=== PATIENT | male | born 1945 | race Caucasian/White ===

== ENCOUNTER 2016-11-14 14:54 | Observation (INO) | payer MEDICARE, OTHER ==
[~2016-11-14] VITALS: Ht 177.8 cm; Wt 87.2 kg
--- NOTE | ~2016-11-14 | HEMODYNAMI ---
PATIENT:MARLENA MEJÍA MEDICAL RECORD: [id number] : 47 [id number] ADMISSION DATE: 11/14/16 Generatedon:11/15/201613:19 Patient name: MARLENA MEJÍA Patient #: [id number] SSN: [id number] : 1945 Date of study: 11/15/2016 Page: Of Hemodynamic Procedure Report Patient Data Patient Demographics Procedure consent was obtained First Name: MARLENA Gender: Male Last Name: ALFONZO : 1945 Middle Initial: MARLENA Age: 71 year(s) Patient #: [id number] Race: SSN: [id number] Additional ID: [id number] Contact details Address: [address] [address] State: [place] City: [place] Zip code: [address] Past Medical History History of disease Date Diagnosis Comments CAD Allergies Allergen Reaction Date Comments Reported Sulfa drugs 02/19/2015 Other allergy 11/15/2016 sulfa Admission Admission Data Admission Date: 11/14/2016 Admission Time: 14:54 Arrival Date: 11/14/2016 Arrival Time: 14:54 Admit Source: Other Insurance Payor: Medicare Room #: D.2119 Weight (lbs.): 191.8 Weight (kg.): 87 Lab Results Lab Result Date: 11/15/2016 Lab Result Time: 0:00 Biochemistry Name Units Result Min Max BUN mg/dl 25 --(----)-* 7 18 Creatinine mg/dl 1.8 --(----)-* 0.6 1.3 CBC Name Units Result Min Max Hemoglobin g/dl 15.1 --(-*--)-- 13.5 17.5 Procedure Procedure Types Cath Procedure Diagnostic Procedure Cardioversion ANDRY Procedure Description Procedure Date Procedure Date: 11/15/2016 Procedure Start Time: 12:58 Procedure End Time: 13:16 Procedure Staff Name Function Jayme Swan MD Performing Physician Kylie Rand RT Scrneftaly Agudelo RN Nurse Tres Ware RT Manager Of It David Rosales RT Monitor Procedure Data Cath Procedure Fluoroscopy Diagnostic fluoroscopy Total fluoroscopy Time: 0 time: 0 min min Diagnostic fluoroscopy Total fluoroscopy dose: 0 dose: 0 mGy mGy Contrast Material Contrast Material Type Amount (ml) Isovue 370 0 Estimated blood loss: 0 ml Procedure Complications No complications Procedure Medications Medication Administration Route Dosage Oxygen NC 2 l/min Hurricaine [place] P.O. Sprays Refer to Anesthesia Notes for Sedation Medications Hemodynamics Rest HGB: 15.1 (g/dl) Heart Rate: 141 (bpm) Snapshots Pre Cath Intra NCS Post Cath Vital Signs Time Heart Resp SPO2 NIBP (mmHg) Rhythm Pain Sedation Rate (ipm) (%) Status Level (bpm) 12:51:00 139 16 99 144/106(123) A-Flutter 0 (11) 10(A) , No pain 12:55:59 139 16 100 Measuring A-Flutter 0 (11) 10(A) , No pain 12:56:14 138 16 100 126/112(124) A-Flutter 0 (11) 10(A) , No pain 13:00:17 127 15 98 124/94(102) A-Flutter 0 (11) 6(A) , No pain 13:04:23 127 16 99 135/89(112) A-Flutter 0 (11) 6(A) , No pain 13:06:58 80 17 99 117/78(94) NSR 0 (11) 6(A) , No pain 13:10:40 78 16 98 92/61(74) NSR 0 (11) 7(A) , No pain 13:15:14 77 22 98 106/69(77) NSR 0 (11) 9(A) , No pain Medications Time Medication Route Dose Verified Delivered Reason Notes Effective ness by by 12:50:20 Oxygen NC 2 Jayme Kumar Per l/min Sosa Agudelo RN physician 12:50:28 Hurricaine P.O. Sprays Jayme Delacruz Per [place] Sosa Swan MD physician 12:50:38 Refer to Jayme Delacruz Per Anesthesia Sosa Swan MD physician Notes for Sedation Medications Procedure Log Time Note 12:20:25 Tres Ware RT(R) sent for patient. Start room use. 12:43:15 ACC Patient presents with Non-STEMI CCS Anginal Class 2--Slight limitation of ordinary activity. 12:43:20 Diagnostic Cath status Elective 12:43:34 Time tracking: Regular hours 12::44 Plan of Care:Hemodynamics will remain stable., Cardiac rhythm will remain stable., Comfort level will be maintained., Respiratory function will remain adequate., Patient/ family verbilizes understanding of procedure., Procedure tolerated without complication., Recovers from procedure without complications.. 12:44:00 Patient arrived from PCU to CCL 1. Patient remains on bed/stretcher for procedure. 12:44:06 Correct patient and procedure confirmed by team. 12:44:07 Signed procedure consent form obtained from patient. 12:44:08 ECG and BP/O2 sat monitors applied to patient. 12:44:09 Vital chart was started 12:50:20 Oxygen 2 l/min NC was given by Stacy Agudelo RN; Per physician; 12:50:28 Hurricaine [place] Sprays P.O. was given by Jayme Swan MD; Per physician; 12:50:38 Refer to Anesthesia Notes for Sedation Medications was given by Jayme Swan MD; Per physician; 12:50:52 Baseline sample Acquired. 12:51:50 Lab Result : Hemoglobin 15.1 g/dl 12:51:50 Lab Result : Creatinine 1.8 mg/dl 12:51:50 Lab Result : BUN 25 mg/dl 12:52:30 Rhythm: atrial flutter 12:52:38 Full Disclosure recording started 12:52:49 H&P Date Dictated: 11/13/2016 Within 30 days and on chart., H&P Addendum completed by physician on day of procedure. (MUST COMPLETE FOR ALL OUTPATIENTS). 12:52:51 Pre-procedure instructions explained to patient. 12:52:51 Pre-op teaching completed and patient verbalized understanding. 12:52:52 Family in waiting room. 12:52:53 Patient NPO since Midnight. 12:53:35 Patient allergic to Other allergysulfa 12:55:22 Is the patient allergic to Iodine/contrast media? No. 12:55:23 Was the patient premedicated? No 12:55:25 Is patient on blood thinner?Yes 12:55:28 ACC The patient was administered the following blood thiners within the last 24 hours: Eliquis 12:55:31 Patient diabetic? No. 12:55:33 If diabetic: On Metformin? No 12:55:37 Previous problem with sedation/anesthesia? No ? 12:55:39 Snore? Yes 12:55:39 Sleep apnea? Yes 12:55:40 Deviated septum? No 12:55:41 Opens mouth fully? Yes 12:55:42 Sticks out tongue? Yes 12:55:43 Airway obstruction? No ? 12:55:46 Dentures? No ? 12:55:50 Pre procedure: right dorsailis pedis pulse 1+ Palpable, but thready & weak; easily obliterated 12:55:53 Patient pain scale 0/10 ?. 12:56:04 IV patent on arrival in right forearm with 0.9% NaCl at O. 12:56:07 Lab results completed and on chart. 12:56:15 Alarms reviewed by R. N. 12:56:16 Sharps counted by scrub and verified by R.N. 12:56:17 Physician arrived 12:56:17 --------ALL STOP TIME OUT------ 12:56:18 Final Timeout: patient, procedure, and site verified with staff and physician. All members of the team are in agreement. 12:56:22 Mid Chest site verified by team. 12:56:24 Physical assessment completed. ASA score P 2 - A patient with mild systemic disease as per Jayme Swan MD. 12:56:28 Sedation plan: TIVA Propofol 12:56:40 morenita chua present and monitoring patient for TIVA. 12:56:49 Chandra Giles Manager Title present for ANDRY. 12:58:29 Procedure started. 12:58:30 ANDRY started. 12:59:03 Quick Combo opened to sterile field. 13:04:15 ANDRY completed. 13:04:17 Quick combo pads placed on patients chest and back. 13:04:48 Defibrillator synced and charged to 300 Joules. 13:05:08 Shock delivered. 13:05:25 Patient cardioverted to sinus rhythm . 13:07:05 Procedure ended.(Physican Out) 13:07:12 Fluoroscopy time 00.00 minutes. 13:07:14 Fluoroscopy dose: 0 mGy 13:07:14 Flurop Dose total: 0 13:07:17 Contrast amount:Isovue 370 0ml. 13:07:19 Sharps counted by scrub and verified by R.N. 13:07:20 Insertion/operative site no bleeding no hematoma. 13:07:23 Post procedure rhythm: sinus rhythm 13:07:26 Estimated blood loss: 0 ml 13:07:27 Post procedure instruction explained to patient.Patient verbalizes understanding. 13:07:27 Patient needs reinforcement of post procedure teaching. 13:08:10 Procedure and supply charges have been captured, reviewed, submitted and are correct. 13:08:14 Procedure Complication : No complications 13:16:03 Vital chart was stopped 13:16:07 See physician's report for complete and final results. 13:16:10 Report given to Med II. 13:16:13 Patient transfered to Med II with Stretcher. 13:16:15 Procedure ended. 13:16:15 Full Disclosure recording stopped 13:16:20 End room use (Document Last) 13:17:08 Admit Source: Other 13:17:12 Arrival Date: 11/14/2016 2:54:00 PM 13:17:34 Insurance Payor : Medicare 13:17:51 Patient Weight : 87 kg Device Usage Item Manufacture Quantity Catalog Hospital Part Current Minimal Lot# / Name Number Charge Number Stock Stock [place] al# Code Datamars 1 [id number] Combo Signature Audit Morgan Stage Time Signature Unsigned Intra-Procedure 11/15/2016 Kylie Giorgi 1:19:23 PM RT(R) Signatures Monitor : David Rosales RT Signature : Date : Time : [facility] [address] [place] [address]
[~2016-11-14 14:54] MED LIST: AMBIEN5 MG PO; AMOXICILLIN875 MG PO; CATAPRES0.1 MG PO; CINNAMON OR; CRESTOR20 MG PO; DURAGESIC1 PATCH .3 TRANSDERM; DURAGESIC1 PATCH .7 TRANSDERM; ECOTRIN325 MG PO; FISH OIL 1,0001 CA1 PO; FLAXSEED OIL1000 MG PO; FLOMAX0.4 MG PO; GLUCOPHAGE500 MG PO; HYDROCHLOROTHIA25 MG OR; HYDROCODON-ACE1 EAC7 PO; ISOSORBIDE MONO30 M1 PO; PLAVIX75 MG PO; PRAVACHOL20 MG PO; RANEXA1000 MG PO; RYTHMOL150 MG PO; TOPROL XL25 MG; TOPROL XL25 MG PO; TRICOR145 MG PO; XANAX0.5 MG PO; XANAX1 MG PO
--- NOTE | 2016-11-14 15:17 | NUR ---
ALERT AND ORIENTED X4. ARRIVE TO ROOM VIA WHEELCHAIR FOR . DENIES SOB OR PAIN. COMPLAINS OF HEART RATE RACING. CAUSING TO FEEL RESTLESS. AMBULATES IN ROOM. GAIT STEADY. CONTINUE PLAN OF CARE AND ADMISSION PROCESS. REFUSES SCDs. TOO RESTLESS TO SIT STILL. BED LOCKED AND LOW. CALL LIGHT IN REACH. TWO SIDERAILS UP.
[2016-11-14] MEDS ORDERED: ELIQUIS5 MG PO (15:25)
[2016-11-14] MEDS ORDERED: PACERONE200 MG PO (15:26)
[2016-11-14] MEDS ORDERED: TOPROL XL50 MG PO (15:27)
[2016-11-14 15:44] VITALS: BP 126/78
[2016-11-14 15:59] LABS: BASOPHILS 0.1 % (0.0-2.0); EOSINOPHILS 4.7 % (0-7); HEMATOCRIT 44.9 % (42.0-54.0); HEMOGLOBIN 15.1 g/dL (13.5-17.5); IMMATURE GRANULOCYTES 0.6 % (0-5); LYMPHOCYTES 35.9 % (15-50); MCH 30.4 pg (26.0-34.0); MCHC 33.6 g/dL (31.0-37.0); MCV 90.5 fL (80.0-100.0); MEAN PLATELET VOLUME 9.8 fL (7.4-10.4); MONOCYTES 7.4 % (2-11); NEUTROPHILS 51.3 % (40-80); PLATELET COUNT 157 10x3/uL (130-400); RBC 4.96 10x6/uL (4.20-6.10); RDW 13.5 % (11.5-14.5); WBC 7.3 10x3/uL (4.8-10.8)
[2016-11-14 16:41] LABS: CALCIUM 10.1 mg/dL (8.5-10.1); CARBON DIOXIDE 30.3 mmol/L (21.0-32.0); CREATININE - SERUM 1.8 mg/dL (0.6-1.3); POTASSIUM - SERUM 4.3 mmol/L (3.5-5.1)
[2016-11-14 18:24] VITALS: BP 128/76; Ht 177.8 cm; Wt 87.2 kg
[2016-11-14 19:46] VITALS: BP 127/78
--- NOTE | 2016-11-14 23:54 | NUR ---
PT LAYING IN BED EYES CLOSED PT APPERS TO BE SLEEPING AT THIS TIME CALL LIGHT IN REACH SRX2 BED LOW AND LOCKED PT NOTIFIED OF NPO STATUS AFTER MIDNIGHT TONIGHT AND CARDIOVERSION IN AM PT VERBALIZED UNDERSTANDING AND CONSENTS SIGNED AND TO CHART WILL MONITOR
[2016-11-15 00:14] VITALS: BP 118/71
[2016-11-15 05:07] VITALS: BP 141/46
[2016-11-15 07:37] VITALS: BP 138/75
--- NOTE | 2016-11-15 09:14 | NUR ---
TELEMETRY FLUTTER. HR 134. NPO FOR ANDRY AND CARDIOVERSION. WILL CONT. PLAN OF CARE.
[2016-11-15 11:27] VITALS: BP 125/86
--- NOTE | 2016-11-15 12:39 | NUR ---
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
--- NOTE | 2016-11-15 13:34 | NUR ---
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 VS WNL. TELEMETRY SR 65 WITH PACED BEATS NOTED. WILL MONITOR,
--- NOTE | 2016-11-15 14:03 | NUR ---
SBP 80. FLUID BOLLUS STARTED. WILL MONITOR.
--- NOTE | 2016-11-15 14:09 | NUR ---
B/P 108/64.
[2016-11-15 15:27] VITALS: BP 117/71
--- NOTE | 2016-11-15 19:03 | NUR ---
SITTING UP IN BED, AAOX3, SKIN WARM AND DRY, RESP UNLABORED, IV PATENT TO RIGHT FOREARM, MOOD PLEASANT, NO DISTRESS NOTED
[2016-11-15 21:18] VITALS: BP 144/73
[2016-11-16 01:32] VITALS: BP 144/72
[2016-11-16 04:57] VITALS: BP 127/74
[2016-11-16 08:38] VITALS: BP 129/69
--- NOTE | 2016-11-16 09:26 | NUR ---
Patient Name: MARLENA MEJÍA Admission Status: Elective Accout number: [id number] Admission Date: 11-15-2016 : 1945 Admission Diagnosis: Attending: SERGIO Current LOS: 1 Anticipated DC Date: 11-16-2016 Planned Disposition: Home Primary Insurance: MEDICARE A & B Discharge Planning Comments: * Is the patient Alert and Oriented? Yes 0 * How many steps to enter\exit or inside your home? NONE 0 * PCP DR. INIGUEZ 0 * Pharmacy [facility] 0 * Preadmission Environment Home Alone 0 * ADLs Independent 0 * Equipment None 0 * Other Equipment NO MEDICAL EQUIPMENT PROVIDER PREFERENCE 0 * List name and contact numbers for known caregivers / representatives who currently or will assist patient after discharge: BEBETO MEJÍA, DAUGHTER, 0 * Community resources currently utilized None 0 * Please name any agencies selected above. NONE 0 * Additional services required to return to the preadmission environment? No 0 * Can the patient safely return to the preadmission environment? Yes 0 * Has this patient been hospitalized within the prior 30 days at any hospital? No 0 CM MET WITH PT IN ROOM TO DISCUSS DISCHARGE PLANNING AND NEEDS. PT REPORTS LIVING AT HOME INDEPENDENTLY AND ALONE. PT HAS NO MEDICAL EQUIPMENT AND NO OUTSIDE SERVICES ASSISTING IN THE HOME. CM DISCUSSED AVAILABILITY OF HOME HEALTH, REHAB SERVICES AND MEDICAL EQUIPMENT. PT DENIES DISCHARGE NEEDS, REPORTS HE IS DRIVING HIMSELF HOME TODAY AT DISCHARGE. IMPORTANT MESSAGE FROM MEDICARE PROVIDED AND EXPLAINED. 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
--- NOTE | 2016-11-16 09:41 | NUR ---
IV AND TELEMETRY DCD. DC PLANS GIVEN. UNDERSTANDING VOICED.
--- NOTE | 2016-11-17 11:11 | TEE ---
PATIENT:MARLENA MEJÍA MEDICAL RECORD: [id number] LOCATION:D.M2 D.211 AGE OF PATIENT: 71 ADMISSION DATE: 11/15/16 SEX: M REFERRING PHYSICIAN: INTERPRETING PHYSICIAN: BEBETO AVENDANO MD TRANSESOPHAGEAL ECHOCARDIOGRAM ANDRY CHARGE INDICATIONS: PREMEDICATIONS: PATIENT'S RESPONSE PROCEDURE DOPPLER MEASUREMENTS: LVIT LA PA RA LVOT RVOT Asc. 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 PROCEDURE IN DETAIL: IV conscious sedation was performed per anesthesia. Continuous O2 saturation, blood pressure monitoring were maintained, all of which remained stable. TRANSESOPHAGEAL ECHOCARDIOGRAM REPORT [id number] MARLENA MEJÍA FINDINGS: 1. Left ventricle chamber size is within normal limits. Left ventricular systolic function is normal. Overall ejection fraction estimated at 55%. 2. Left atrium, right atrium, and right ventricular chamber sizes are within normal limits. 3. Valvular structures have normal structure and motion. 4. No evidence of left atrial thrombus or left ventricular thrombus. TRANSINT:[id number] Voice Confirmation ID: [id number] DOCUMENT ID: [id number] at 1111 CC: [id number] DICTATION DATE: 11/15/16 1308 TIRE CENTER MANAGER: 11/15/16 1334 DIS IN 11/16/16 [facility] [address] [place] [address]
--- NOTE | 2016-11-17 11:11 | OP ---
PATIENT NAME: MARLENA MEJÍA MEDICAL RECORD: [id number] :[birth year] LOCATION:D.M2 D.2119 ADMISSION DATE:11/15/16 SURGEON: BEBETO AVENDANO MD DATE OF OPERATION: 11/15/2016 PROCEDURE: DC cardioversion. INDICATION: Atrial fibrillation. PROCEDURE IN DETAIL: IV conscious sedation was performed per anesthesia. Continuous heart rate, O2 saturation, blood pressure monitoring all undertaken, all of which remains stable. He received 1 shock restoring sinus rhythm. OVERALL IMPRESSION: Successful DC cardioversion from atrial fibrillation to sinus rhythm. TRANSINT:[id number] Voice Confirmation ID: [id number] DOCUMENT ID: [id number] BEBETO AVENDANO MD at 1111 CC: [id number] DICTATION DATE: 11/15/16 1307 RAIL SPLITTER: 11/15/16 1332 DIS IN 11/16/16 [id number] [place] [address]
--- NOTE | 2016-11-17 11:11 | DS ---
PATIENT:MARLENA PEREIRA :[birth year] MEDICAL RECORD: [id number] DISCHARGE SUMMARY ADMISSION DATE: 11/15/16 DISCHARGE DATE: 11/16/16 DISCHARGE DIAGNOSES: 1. Atrial fibrillation with rapid ventricular response. 2. DC cardioversion this admission. 3. Shortness of breath, dyspnea on exertion. 4. Coronary artery disease. 5. Previous PTCA stent. 6. Hypertension. 7. Hyperlipidemia. HOSPITAL COURSE: Mr. Pereira presents with increasing shortness of breath. Due to his new onset atrial fibrillation, he was on Eliquis and Cordarone. He has a history of atrial fibrillation, previously on propafenone. He did not tolerate the atrial fibrillation and we admitted him to transesophageal echo revealing no left atrial thrombus and he underwent DC cardioversion. His symptomatology resolved. He felt much better and was discharged home to follow up with [facility] in 2 weeks. TRANSINT:[id number] Voice Confirmation ID: [id number] DOCUMENT ID: [id number] BEBETO AVENDANO MD at 1111 CC: [id number] DICTATION DATE: 11/16/16 0836 QUOTATION CLERK: 11/16/16 0907 DIS IN 11/16/16 [facility] [address] [place] [address]
== END 2016-11-16 09:50 | disposition home or self-care (01) ==
LOC: D.M2 14:54 → OBSVTIME 14:54 → D.M2 11-15 16:14
PROVIDERS: ADMIT Internal Medicine Interventional Cardiology
DX: I48.91 Unspecified atrial fibrillation (principal); I25.10 Atherosclerotic heart disease of native coronary artery without angina pectoris; I10 Essential (primary) hypertension; E78.5 Hyperlipidemia, unspecified; Z95.5 Presence of coronary angioplasty implant and graft

== ENCOUNTER 2016-11-24 16:00 | Emergency (ER) | payer MEDICARE, OTHER ==
[2016-11-14 18:24] VITALS: BMI 27.7
[~2016-11-24 16:00] MED LIST changes: +ELIQUIS5 MG PO; +PACERONE200 MG PO; +TOPROL XL50 MG PO
[2016-11-24 16:41] LABS: BASOPHILS 0.2 % (0.0-2.0); EOSINOPHILS 2.7 % (0-7); HEMATOCRIT 42.6 % (42.0-54.0); HEMOGLOBIN 14.3 g/dL (13.5-17.5); IMMATURE GRANULOCYTES 0.5 % (0-5); LYMPHOCYTES 19.7 % (15-50); MCH 30.6 pg (26.0-34.0); MCHC 33.6 g/dL (31.0-37.0); MEAN PLATELET VOLUME 9.8 fL (7.4-10.4); MONOCYTES 8.6 % (2-11); NEUTROPHILS 68.3 % (40-80); PLATELET COUNT 147 10x3/uL (130-400); RBC 4.68 10x6/uL (4.20-6.10); RDW 13.6 % (11.5-14.5); WBC 5.8 10x3/uL (4.8-10.8)
[2016-11-24 16:55] LABS: ALBUMIN 3.5 g/dL (3.4-5.0); ALKALINE PHOSPHATASE 39 U/L (46-116); ALT (SGPT) 27 U/L (10-68); BILIRUBIN - TOTAL 0.46 mg/dL (0.2-1.3); CALC OSMOLALITY 282 mosm/kg (275-300); CALCIUM 9.2 mg/dL (8.5-10.1); CARBON DIOXIDE 28.8 mmol/L (21.0-32.0); CHLORIDE - SERUM 106 mmol/L (98-107); CREATININE - SERUM 1.6 mg/dL (0.6-1.3); GLUCOSE 87 mg/dL (74-106); POTASSIUM - SERUM 4.1 mmol/L (3.5-5.1); PROTEIN - SERUM 6.4 g/dL (6.4-8.2); SODIUM 141 mmol/L (136-145); UREA NITROGEN 21 mg/dL (7-18); eGFR NON AFRICAN AMERICAN 46 mL/min (90-120)
[2016-11-24 17:01] LABS: TROPONIN-I < 0.017 ng/mL (0.000-0.060)
== END 2016-11-24 18:00 | disposition home or self-care (01) ==
LOC: D.ER 16:00
PROVIDERS: Emergency Medicine
DX: R00.2 Palpitations (principal); I49.3 Ventricular premature depolarization; E11.9 Type 2 diabetes mellitus without complications; N18.9 Chronic kidney disease, unspecified; F17.200 Nicotine dependence, unspecified, uncomplicated

== ENCOUNTER 2018-05-03 07:32 | Outpatient (CLI) | payer MEDICARE, OTHER ==
[~2018-05-03] VITALS: Ht 177.8 cm; Wt 86.4 kg
--- NOTE | ~2018-05-03 | HEMODYNAMI ---
PATIENT:PAT MEJÍA MEDICAL RECORD: [id number] : 47 LOCATION:[facility] ADMISSION DATE: 05/03/18 Generatedon:05/03/201810:12 Patient name: PAT MEJÍA Patient #: [id number] : 1945 Date of study: 05/03/2018 Page: Of Hemodynamic Procedure Report Patient Data Patient Demographics Procedure consent was obtained First Name: PAT Gender: Male Last Name: ALFONZO : 1945 Middle Initial: MARLENA Age: 72 year(s) Patient #: [id number] Race: SSN: [id number] Additional ID: [id number] Contact details Address: [place] [address] State: [place] City: [place] Zip code: [address] Past Medical History History of disease Date Diagnosis Comments CAD Allergies Allergen Reaction Date Comments Reported Sulfa drugs 02/19/2015 Other allergy 11/15/2016 sulfa Admission Admission Data Admission Date: 05/03/2018 Admission Time: 7:32 Procedure Procedure Types Cath Procedure Diagnostic Procedure LHC LH w/Coronaries Sedation Charges Moderate Sedation up to 15 minutes PCI Procedure Coronary Atherectomy Atherectomy w/Stent Coronary Initial Procedure Description Procedure Date Procedure Date: 05/03/2018 Procedure Start Time: 9:36 Procedure End Time: 10:09 Procedure Staff Name Function Jayme Swan MD Performing Physician Kylie Rand RT Scrub Shandra Campo RN Nurse Suraj Parson RT Monitor Procedure Data Cath Procedure Fluoroscopy Diagnostic fluoroscopy Total fluoroscopy Time: 6.5 time: 6.5 min min Diagnostic fluoroscopy Total fluoroscopy dose: dose: 1216 mGy 1216 mGy Contrast Material Contrast Material Type Amount (ml) Isovue 370 110 Entry Location Entry Primary Successful Side Size Upsize Upsize Entry Closure Succes sful Closure Location (Fr) 1 (Fr) 2 (Fr) Remarks Device Remarks Femoral Right 5 Fr 6 Fr Exoseal artery Short Estimated blood loss: 10 ml Diagnostic catheters Device Type Used For End Catheter Placement MULTIPACK Pigtail 5 Fr Procedure catheter MULTIPACK JL 4.0 5Fr Procedure catheter MULTIPACK 3DRC 5Fr Procedure catheter Procedure Complications No complications Procedure Medications Medication Administration Route Dosage Oxygen NC 2 l/min Lidocaine 2% added to field 20 Heparin Flush Bag added to field 2 bags (1000units/500ml NS) 0.9% NaCl I.V. 100 ml/hr Zofran I.V. 4 mg Versed I.V. 2 mg Fentanyl I.V. 100 mcg Versed I.V. 2 mg Fentanyl I.V. 100 mcg Heparin Bolus I.V. 5000 units Integrilin (Bolus I.V. 7.9 ml 2mg/ml) Versed I.V. 2 mg Fentanyl I.V. 50 mcg Versed I.V. 1 mg Fentanyl I.V. 50 mcg Plavix P.O. 600 mg Hemodynamics Rest Heart Rate: 60 (bpm) Pressure Samples Time Site Value (mmHg) Purpose Heart Use Rate(bpm) 9:38 LV 98/7,-3 Snapshot 60 Snapshots Pre Cath Intra NCS Post Cath Vital Signs Time Heart Resp SPO2 etCO2 NIBP (mmHg) Rhythm Pain Sedation Rate (ipm) (%) (mmHg) Status Level (bpm) 8:46:29 67 24 98 26.9 Measuring NSR 0 (11) 10(A) , No pain 8:50:00 60 23 98 27.7 214/99(126) NSR 0 (11) 10(A) , No pain 8:54:30 60 18 97 23.2 189/96(121) NSR 0 (11) 10(A) , No pain 8:59:00 60 12 98 37.4 195/100(130) NSR 0 (11) 10(A) , No pain 9:03:31 60 16 97 35.2 192/96(118) NSR 0 (11) 10(A) , No pain 9:07:59 60 17 97 37.4 178/97(125) NSR 0 (11) 10(A) , No pain 9:12:23 60 19 98 35.9 177/95(115) NSR 0 (11) 10(A) , No pain 9:16:45 60 18 100 21.7 195/101(121) NSR 0 (11) 10(A) , No pain 9:21:16 60 15 99 29.2 175/91(114) NSR 0 (11) 10(A) , No pain 9:25:38 60 17 99 35.2 181/99(118) NSR 0 (11) 10(A) , No pain 9:30:02 60 19 100 35.9 187/94(117) NSR 0 (11) 10(A) , No pain 9:34:28 60 15 100 38.1 194/94(120) NSR 0 (11) 10(A) , No pain 9:38:59 60 17 97 0 158/90(104) NSR 0 (11) 9(A) , No pain 9:43:17 60 15 94 1.4 162/89(106) NSR 0 (11) 9(A) , No pain 9:47:37 60 18 98 0 170/86(111) NSR 0 (11) 9(A) , No pain 9:52:01 60 16 98 0 156/85(108) NSR 0 (11) 9(A) , No pain 9:56:19 60 16 99 0 171/87(103) NSR 0 (11) 9(A) , No pain 10:00:41 60 16 99 23.9 173/91(145) NSR 0 (11) 9(A) , No pain 10:05:02 60 18 97 0.7 181/96(124) NSR 0 (11) 10(A) , No pain 10:09:26 60 17 1.4 195/100(123) NSR 0 (11) 10(A) , No pain Medications Time Medication Route Dose Verified Delivered Reason Notes Effectiveness by by 8:50:08 Oxygen NC 2 Jayme Devi used for l/min Sosa Campo RN procedure 8:50:17 Lidocaine 2% added 20ml Jayme Delacruz for local to vial Sosa Swan MD anesthetic field 8:50:22 Heparin Flush added 2 Jayme Delacruz used for Bag to bags Sosa Swan MD procedure (1000units/500ml field NS) 8:50:30 0.9% NaCl I.V. 100 Jayme Doloresie Per physician ml/hr Sosa Campo RN 8:51:10 Zofran I.V. 4 mg Jayme Devi Per physician pt Sosa Campo RN states nausea 9:33:34 Versed I.V. 2 mg Jayme Doloresie for sedation Sosa Campo RN 9:33:40 Fentanyl I.V. 100 Jayme Buffie for sedation mcg Sosa Campo RN 9:36:22 Versed I.V. 2 mg Jayme Buffie for sedation Sosa Campo RN 9:36:26 Fentanyl I.V. 100 Jayme Doloresie for sedation mcg Sosa Campo RN 9:45:26 Heparin Bolus I.V. 5000 Jayme Devi for verifi ed units Sosa Campo RN anticoagulation with dr swan 9:45:32 Integrilin I.V. 7.9 Jaymenitza Devi for wasted (Bolus 2mg/ml) ml Sosa Campo RN antiplatelet 2.3 ml therapy of vial 9:49:12 Versed I.V. 2 mg Jayme Buffie for sedation Sosa Campo RN 9:49:16 Fentanyl I.V. 50 Jayme Buffie for sedation mcg Sosa Campo RN 9:53:17 Fentanyl I.V. 50 Jayme Bernalie for sedation mcg Sosa Campo RN 9:53:30 Versed I.V. 1 mg Jayme Bernalie for sedation Sosa Campo RN 10:08:50 Plavix P.O. 600 Jayme Devi for mg Sosa Campo RN antiplatelet therapy Procedure Log Time Note 8:24:51 Informed consent obtained and on chart 8:25:06 Diagnostic Cath Status : Elective 8:32:13 Shandra Campo RN sent for patient. Start room use. 8:32:14 Time tracking: Regular hours (M-F 7:00 - 5:00) 8:32:18 Plan of Care:Hemodynamics will remain stable., Cardiac rhythm will remain stable., Comfort level will be maintained., Respiratory function will remain adequate., Patient/ family verbilizes understanding of procedure., Procedure tolerated without complication., Recovers from procedure without complications.. 8:38:12 Patient received from Pre/Post Procedure Room to CCL 2 Alert and oriented. Tansferred to table in Supine position. 8:38:13 Warm blankets applied, and leola hugger turned on for patient comfort. 8:38:13 Correct patient and procedure confirmed by team. 8:38:14 ECG and BP/O2 sat monitors applied to patient. 8:38:15 Pre-procedure instructions explained to patient. 8:38:15 Pre-op teaching completed and patient verbalized understanding. 8:38:17 Family in waiting room. 8:44:39 Vital chart was started 8:44:40 Baseline sample Acquired. 8:44:45 Rhythm: paced 8:44:46 Full Disclosure recording started 8:44:50 Patient NPO since Midnight. 8:44:53 Is the patient allergic to Iodine/contrast media? No. 8:44:54 Was the patient premedicated? No 8:44:55 Is patient on blood thinner?No 8:44:56 Patient diabetic? Yes. 8:44:57 If diabetic: On Metformin? No 8:45:00 Previous problem with sedation/anesthesia? No ? 8:45:01 Snore? No 8:45:02 Sleep apnea? No 8:45:03 Deviated septum? No 8:45:04 Opens mouth fully? Yes 8:45:05 Sticks out tongue? Yes 8:45:07 Airway obstruction? No ? 8:45:11 Dentures? No ? 8:45:15 Pre procedure: right dorsailis pedis pulse 2+ Normal; easily identifiable; not easily obliterated 8:45:18 Pre procedure: left dorsailis pedis pulse 2+ Normal; easily identifiable; not easily obliterated 8:45:20 Patient pain scale 0/10 ?. 8:45:44 IV patent on arrival in left forearm with 0.9% NaCl at O. 8:45:47 Lab results completed and on chart. 8:45:52 Right groin area was prepped with chlora-prep and draped in sterile fashion 8:45:53 Alarms reviewed by R. N. 8:45:53 Sharps counted by scrub and verified by R.N. 8:48:38 Use device set Femoral Dx 8:48:39 ACIST Syringe (67862) opened to sterile field. 8:48:40 Bag Decanter (2001S) opened to sterile field. 8:48:41 Medline Cath Pack ([id number]) opened to sterile field. 8:48:43 ACIST Hand Control (79382) opened to sterile field. 8:48:44 ACIST Manifold (44609) opened to sterile field. 8:48:44 Tegaderm 4 x 4 (1626W) opened to sterile field. 8:48:46 SHEATH Prelude 5Fr 0.035 (IDL-3V-86-035) opened to sterile field. 8:48:47 DIAGNOSTIC WIRE .035 260cm J wire (368498) opened to sterile field. 8:48:47 DIAGNOSTIC Multipack 5Fr catheter set (AZ7660) opened to sterile field. 8:50:08 Oxygen 2 l/min NC was administered by Shandra Campo RN; used for procedure; 8:50:17 Lidocaine 2% 20ml vial added to field was administered by Jayme Swan MD; for local anesthetic; 8:50:22 Heparin Flush Bag (1000units/500ml NS) 2 bags added to field was administered by Jayme Swan MD; used for procedure; 8:50:30 0.9% NaCl 100 ml/hr I.V. was administered by Shandra Campo RN; Per physician; 8:51:10 Zofran 4 mg I.V. was administered by Shandra Campo RN; Per physician; pt states nausea 8:54:21 Physician paged 9:00:50 Zero performed for pressure channel P1 9:31:50 Physician arrived 9:31:50 --------ALL STOP TIME OUT------ 9:31:51 Final Timeout: patient, procedure, and site verified with staff and physician. All members of the team are in agreement. 9:31:53 Right groin site verified by team. 9:31:56 Physical assessment completed. ASA score P 2 - A patient with mild systemic disease as per Jayme Swan MD. 9:31:59 Sedation plan: IV Moderate Sedation Medication:Versed, Fentanyl 9:33:34 Versed 2 mg I.V. was administered by Shandra Campo RN; for sedation; 9:33:40 Fentanyl 100 mcg I.V. was administered by Shandra Campo RN; for sedation; 9:36:06 Procedure started. 9:36:08 Local anesthetic to right femoral artery with Lidocaine 2% by Jayme Swan MD.INITIAL ACCESS ONLY 9:36:22 Versed 2 mg I.V. was administered by Shandra Campo RN; for sedation; 9:36:26 Fentanyl 100 mcg I.V. was administered by Shandra Campo RN; for sedation; 9:36:26 A 5 Fr sheath was inserted into the Right Femoral artery 9:38:15 A MULTIPACK Pigtail 5 Fr catheter was advanced over the wire and used for Procedure. 9:38:25 LV gram done using DURAND 9:38:27 Injector settings: Ml/sec: 10, Volume: 20, 9:38:31 EF : 60 % 9:38:32 Catheter exchanged over wire. 9:38:36 A MULTIPACK JL 4.0 5Fr catheter was advanced over the wire and used for Procedure. 9:39:13 LCA angiography performed. 9:39:47 SHEATH Prelude 6Fr 0.035 (IKQ-5A-54-035) opened to sterile field. 9:39:54 CHOICE PT Extra Support 182cm wire ([id number]) opened to sterile field. 9:39:55 INFLATOR Merit BasixCompak (MK4514) opened to sterile field. 9:40:02 GUIDE 6FR XBLAD 3.5 catheter ([id number]) opened to sterile field. 9:40:05 Catheter exchanged over wire. 9:40:13 A MULTIPACK 3DRC 5Fr catheter was advanced over the wire and used for Procedure. 9:40:19 RCA angiography performed. 9:42:03 Catheter removed. 9:42:09 Sheath upsized to a 6 Fr Short. 9:45:26 Heparin Bolus 5000 units I.V. was administered by Shandra Campo RN; for anticoagulation; verified with dr swan 9:45:32 Integrilin (Bolus 2mg/ml) 7.9 ml I.V. was administered by Shandra Campo RN; for antiplatelet therapy; wasted 2.3 ml of vial 9:49:12 Versed 2 mg I.V. was administered by Shandra Campo RN; for sedation; 9:49:16 Fentanyl 50 mcg I.V. was administered by Shandra Campo RN; for sedation; 9:49:22 Catheter removed. 9:49:49 6 Fr xblad 3.5 guide catheter was inserted over the wire 9:49:55 choice pt es wire advanced. 9:49:56 Wire advanced across lesion. 9:50:03 LASER ELCA 0.9 Rx atherectomy catheter ([id number]) opened to sterile field. 9:50:41 Laser ELCA advanced over the wire 9:52:53 Laser pass to pLAD with Fluence of 80 and Rate of 40. 9:53:16 Laser pass to pLAD with Fluence of 80 and Rate of 40. 9:53:17 Fentanyl 50 mcg I.V. was administered by Shandra Campo RN; for sedation; 9:53:30 Versed 1 mg I.V. was administered by Shandra Campo RN; for sedation; 9:53:45 Laser pass to pLAD with Fluence of 80 and Rate of 40. 9:54:02 Laser pass to pLAD with Fluence of 80 and Rate of 40. 9:54:29 Laser pass to pLAD with Fluence of 80 and Rate of 40. 9:54:56 Laser pass to pLAD with Fluence of 80 and Rate of 40. 9:56:36 Laser catheter removed. 9:57:25 Inflate balloon Inflation number: 1 A NC EUPHORA 3.5 x 15 balloon ([id number]) was prepped and advanced across the Prox LAD, then inflated to 13 BERNICE for 0:10 (min:sec). 9:57:50 Inflation number: 2 The NC EUPHORA 3.5 x 15 balloon ([id number]) was reinflated across the Prox LAD, to 21 BERNICE for 0:10 (min:sec). 9:58:06 Inflation number: 3 The NC EUPHORA 3.5 x 15 balloon ([id number]) was reinflated across the Prox LAD, to 21 BERNICE for 0:10 (min:sec). 9:58:07 Balloon removed over the wire. 10:00:12 Place stent Inflation Number: 4 A ALICIA RX 3.5 x 18 stent ([id number]) was prepped and advanced across the Prox LAD. The stent was deployed at 13 BERNICE for 0:10 (min:sec). 10:00:31 Inflation number: 5 The stent balloon was then re-inflated across the Prox LAD to 23 BERNICE for 0:10 (min:sec). 10:01:10 Stent catheter was removed intact over wire. 10:01:10 Wire removed. 10:01:11 Guide catheter removed. 10:01:17 EXOSEAL 6Fr (EX600) opened to sterile field. 10::24 Sheath removed intact; hemostasis achieved with Exoseal to the Right Femoral artery. ::26 Procedure ended.(Physican Out) 10:04:41 Fluoroscopy time 06.50 minutes. :: Fluoroscopy dose: 1216 mGy 10:05:26 Flurop Dose total: 1216 10:05:47 Contrast amount:Isovue 370 110ml. 10:05:48 Sharps counted by scrub and verified by R.N. 10:05:53 Insertion/operative site no bleeding no hematoma. 10:05:56 Post-op/insertion site Right Femoral artery dressed using a 4 x 4 and Tegaderm. 10:06:00 Post right femoral artery:stable, soft, clean and dry 10:06:01 Post Procedure Pulses reassessed and unchanged 10:06:03 Post-procedure physical assessment completed. ASA score P 2 - A patient with mild systemic disease as per Jayme Swan MD. 10:06:05 Post procedure rhythm: unchanged. 10:06:07 Estimated blood loss: 10 ml 10:06:08 Post procedure instruction explained to patient.Patient verbalizes understanding. 10:06:09 Patient needs reinforcement of post procedure teaching. 10:06:25 Procedure type changed to Cath procedure, Diagnostic procedure, LHC, LHC w/Coronaries, Sedation Charges, Moderate Sedation up to 15 minutes, PCI procedure, Coronary Atherectomy, Atherectomy w/Stent Coronary Initial 10:08:50 Plavix 600 mg P.O. was administered by Shandra Campo RN; for antiplatelet therapy; 10:08:55 Procedure and supply charges have been captured, reviewed, submitted and are correct. 10:08:57 Procedure Complication : No complications 10:09:00 Vital chart was stopped 10:09:01 See physician's report for complete and final results. 10:09:03 Report given to Pre/Post Procedure Room. 10:09:06 Patient transfered to Pre/Post Procedure Room with Stretcher. 10:09:07 Procedure ended. 10:09:07 Full Disclosure recording stopped 10:09:13 End room use (Document Last) 10:11:38 Laser total pulses delivered: 2800 10:11:47 Laser total treatment time: 1 minutes 10 seconds Intervention Summary Intervention Notes Time ActionType Lesion and Equipment Used Action# Pressure Duration Attributes 9:57:25 Inflate Prox LAD NC EUPHORA 3.5 1 13 00:10 balloon x 15 balloon ([id number]) 9:57:50 Reinflate Prox LAD NC EUPHORA 3.5 2 21 00:10 balloon x 15 balloon ([id number]) 9:58:06 Reinflate Prox LAD NC EUPHORA 3.5 3 21 00:10 balloon x 15 balloon ([id number]) 10:00:12 Place stent Prox LAD ALICIA RX 3.5 x 4 13 00:10 18 stent ([id number]) 10:00:31 Reinflate Prox LAD ALICIA RX 3.5 x 5 23 00:10 stent 18 stent balloon ([id number]) Device Usage Item Name Manufacture Quantity Catalog Number Hospital Part Current Minimal Lot# / Charge Number Stock Stock Serial# Code ACIST Syringe Acist 1 88445 976354 522355 [id number] 20 (22863) Medical Systems [employer] Bag Decanter Microtek 1 2001S 295093 71289 500617 5 () Medical Inc. Medline Cath Cardinal 1 [id number] 055535 76539 468595 5 Pack Health ([id number]) ACIST Hand Acist 1 38966 660599 536018 665416 5 Control (58442) Medical [employer] ACIST Manifold Acist 1 38710 176722 183508 555693 5 (07025) Medical Systems Inc Tegaderm 4 x 4 3M 1 1626W 721858 003338 153297 5 (1626W) SHEATH Prelude Merit 1 WNX-7I-16-035 444060 739311 627855 5 5Fr 0.035 Medical (NUB-2O-39-035) DIAGNOSTIC WIRE [facility] Micheal 1 827933 575214 451469 241945 30 .035 260cm J wire (269732) DIAGNOSTIC Cardinal 1 JQ2944 258366 68127 699432 30 Multipack 5Fr Health catheter set (MX6554) MULTIPACK Cardinal 1 327174 5 Pigtail 5 Fr Health catheter MULTIPACK JL Cardinal 1 067435 5 4.0 5Fr Health catheter SHEATH Prelude Merit 1 CGE-2M-47-35 284536 9428201 084377 5 6Fr 0.035 Medical (CRA-6V-07-035) CHOICE PT Extra [place] 1 [id number] 506803 577455 018010 5 Support 182cm Scientific wire ([id number]) INFLATOR Merit Merit 1 LD9437 020641 252211 323471 15 Coupay Medical (KQ6702) GUIDE 6FR XBLAD Cardinal 1 53490052 031205 732330 449356 10 3.5 catheter Health (48585593) MULTIPACK 3DRC Cardinal 1 276065 5 5Fr catheter Health LASER ELCA 0.9 Roque 1 110-004 493194 889689 570805 5 Rx atherectomy Healthcare catheter (172405) (609979) NC EUPHORA 3.5 Medtronic 1 [id number] 482639 955693 598976 1 [id number] x 15 balloon ([id number]) ALICIA RX 3.5 x Medtronic 1 [id number] 745610 5499464 602034 5 [id number] 18 stent ([id number]) EXOSEAL 6Fr Cardinal 1 EX600 593769 331713 247425 10 (EX600) Health Signature Audit [place] Stage Time Signature Unsigned Intra-Procedure 05/03/2018 Suraj Parson 10:12:20 AM RT(R) Signatures Monitor : Suraj Parson RT Signature : Date : Time : [id number] [facility] [place] [address]
--- NOTE | ~2018-05-03 | HP ---
PATIENT: PAT PEREIRA MEDICAL RECORD: [id number] ACCOUNT: [id number] LOCATION:[facility] : 47 ADMISSION DATE: 05/03/18 HISTORY AND PHYSICAL EXAMINATION DIAGNOSES: 1. Unstable angina. 2. Coronary artery disease. 3. Previous multivessel PTCA stent. 4. Hypertension. 5. Hyperlipidemia. 6. Past smoking. HISTORY OF PRESENT ILLNESS: Mr. Pereira presents with anginal symptomatology. He has a history of multivessel PTCA stent. His angina has been building for the past few weeks, it is just like that of his previous angina. PHYSICAL EXAMINATION: GENERAL APPEARANCE: Well-nourished, well-developed, appears stated age. Level of distress, comfortable. PSYCHIATRIC: Mental status, alert, normal affect. Orientation, oriented to time, place and person. EYES: Lids and conjunctiva, noninjected. No discharge, no pallor. ENT: Lips, teeth, gums, normal dentition. Oropharynx, no cyanosis, no pallor. NECK: Carotid arteries, bilateral normal upstroke, no bruits, no thrills. JUGULAR VEINS: No jugular venous pressure or distention. CERVICAL LYMPH NODES: Nontender, nonenlarged. THYROID: Not enlarged. Nontender. No nodules. LUNGS: Respiratory effort, unlabored. CHEST: Normal curvature. No thoracic deformity. No chest wall tenderness. Percussion, resonant. Auscultation, clear. No wheezes, no rales, no rhonchi. CARDIOVASCULAR: Precordial exam, nondisplaced. No heaves or pericardial thrills. Rate and rhythm, regular. Heart sounds, normal S1, normal S2. No S3, no gallop, no rub. Systolic murmur, not heard. Diastolic murmur, not heard. EXTREMITIES: No cyanosis, no edema. Peripheral pulses, full and equal in all extremities, except as noted. No bruits appreciated. ABDOMEN: Soft, nondistended. Normal aorta. No bruit. Nontender. No masses. Liver, nontender, no hepatomegaly. Spleen, nontender, no splenomegaly. MUSCULOSKELETAL: No joint tenderness. No joint swelling. No erythema. NEUROLOGICAL: Normal gait, normal strength, normal tone. SKIN: Warm and dry. REVIEW OF SYSTEMS: The patient reports easy bruising but reports no swollen glands. The patient reports no fever, no night sweats, no significant weight gain, no significant weight loss. No significant exercise tolerance. The patient reports no dry eyes, no irritation, no vision change. Patient reports no difficulty hearing and no ear pain. Patient reports no frequent nose bleeds or nose and sinus problems. Patient reports on arm pain on exertion. No shortness of breath while lying down. No history of heart murmur. Patient reports no cough, no wheezing or coughing up blood. Patient reports no abdominal pain, no vomiting. Normal appetite. No diarrhea and not vomiting blood. No nausea and no constipation. Patient reports no incontinence. No difficulty urinating. No hematuria. No increased frequency. Patient reports no muscle aches. No weakness, no arthralgias, no back pain. No swelling of the extremities. Patient reports no abnormal mole, no jaundice, no rashes. Reports HISTORY AND PHYSICAL [id number] ALFONZOPAT MARLENA no loss of consciousness. No weakness and no numbness. No seizures, dizziness, or headaches. The patient reports no depression, no sleep disturbance, feeling safe in a relationship and no alcohol abuse. Patient reports on fatigue. Reports no runny nose or sinus pressure. No itching, no hives, and no frequent sneezing. OVERALL IMPRESSION: Unstable angina in patient with multivessel coronary disease, most likely he has recurrent hemodynamically significant disease. We will proceed with coronary angiography. Further care depends upon the findings of the angiography. TRANSINT:[id number] Voice Confirmation ID: [id number] DOCUMENT ID: [id number] BEBETO AVENDANO MD at 2002 CC: [id number] DICTATION DATE: 05/03/18 1044 WOUND SPECIALIST: 05/03/18 1058 DEP CLI 05/03/18 [place] [id number] [place] [id number]
--- NOTE | ~2018-05-03 | OP ---
PATIENT NAME: PAT MEJÍA MEDICAL RECORD: [id number] :47 LOCATION:D[facility] ADMISSION DATE: SURGEON: BEBETO AVENDANO MD DATE OF OPERATION: 05/03/2018 PROCEDURES: 1. Laser atherectomy LAD. 2. PTCA stent LAD. 3. Left heart catheterization. 4. Selective coronary angiography. 5. Left ventriculogram. INDICATION: Angina and coronary artery disease. PROCEDURE IN DETAIL: After informed consent was obtained and after a detailed description of the risks, benefits as well as alternative therapies, the patient elected to proceed with angiogram and angioplasty. The right femoral area was prepped and draped in normal sterile fashion. Right femoral artery was cannulated via modified Seldinger technique with placement of 6-[place] sheath. All catheters exchanged through this sheath. FINDINGS: The left ventriculogram was performed in standard 30-degree DURAND view, reveals good cardiac wall motion throughout all segments. Overall ejection fraction estimated 60%. SELECTIVE CORONARY ANGIOGRAPHY: 1. Left main is with no significant angiographic disease. 2. Left anterior descending has previously placed stents. There is 90% in-stent restenosis. 3. The left circumflex has mild irregularities, but no flow-limiting stenosis. 4. The right coronary has previously placed stents, these are widely patent with no significant restenosis. No disease elsewise throughout the RCA or its branches. LASER ATHERECTOMY, PTCA STENT OF THE LAD: Laser atherectomy was performed with a 0.9 mm catheter, 80 fluence, 40 rate with multiple passes made. We then ballooned it with a 3.5 high pressure balloon and stented with a 3.5 x 18 mm Gueydan. Result was 0% residual stenosis. OVERALL IMPRESSION: Successful PTCA stent of the left anterior descending going from 90% in-stent restenosis to 0% residual. TRANSINT:[id number] Voice Confirmation ID: [id number] DOCUMENT ID: [id number] BEBETO AVENDANO MD at 2001 CC: [id number] DICTATION DATE: 05/03/18 1007 MEDICAL EQUIPMENT SALES: 05/03/18 1026 [facility] CLI 05/03/18 [place] [address]
[2018-05-03] MEDS ORDERED: METOPROLOL TAR100 M1 PO (07:44)
[2018-05-03 07:51] VITALS: BP 188/92; Ht 177.8 cm; Wt 86.4 kg
[2018-05-03 08:00] LABS: BASOPHILS 0.2 % (0-2); EOSINOPHILS 4.8 % (0-7); HEMATOCRIT 47.5 % (42.0-54.0); HEMOGLOBIN 15.4 g/dL (13.5-17.5); IMMATURE GRANULOCYTES 0.6 % (0-5); MCH 28.6 pg (26.0-34.0); MCHC 32.4 g/dL (31.0-37.0); MCV 88.1 fL (80.0-100.0); MONOCYTES 11.4 % (2-11); PLATELET COUNT 161 10x3/uL (130-400); RBC 5.39 10x6/uL (4.20-6.10); RDW 14.1 % (11.5-14.5); WBC 6.5 10x3/uL (4.8-10.8)
[2018-05-03 08:11] LABS: ANION GAP 11.3 mmol/L (8-16); CALCIUM 9.1 mg/dL (8.5-10.1); CARBON DIOXIDE 27.2 mmol/L (21.0-32.0); CREATININE - SERUM 1.5 mg/dL (0.6-1.3); POTASSIUM - SERUM 4.5 mmol/L (3.5-5.1)
== END 2018-05-03 14:00 | disposition home or self-care (01) ==
LOC: D.CATH 07:32
PROVIDERS: Internal Medicine Interventional Cardiology
DX: I25.110 Atherosclerotic heart disease of native coronary artery with unstable angina pectoris (principal); I10 Essential (primary) hypertension; E78.5 Hyperlipidemia, unspecified; Z95.5 Presence of coronary angioplasty implant and graft; Z87.891 Personal history of nicotine dependence; Z01.812 Encounter for preprocedural laboratory examination
CPT/HCPCS: 93458; C9602

== ENCOUNTER 2018-05-07 11:07 | Emergency (ER) | payer MEDICARE, OTHER ==
[~2018-05-07 11:07] MED LIST changes: +METOPROLOL TAR100 M1 PO
[2018-05-07 11:36] VITALS: BP 123/084; Ht 177.8 cm
[2018-05-07 12:20] LABS: BASOPHILS 0.1 % (0-2); EOSINOPHILS 5.1 % (0-7); HEMATOCRIT 45.7 % (42.0-54.0); HEMOGLOBIN 15.2 g/dL (13.5-17.5); IMMATURE GRANULOCYTES 0.7 % (0-5); LYMPHOCYTES 24.1 % (15-50); MCHC 33.3 g/dL (31.0-37.0); MEAN PLATELET VOLUME 10.4 fL (7.4-10.4); MONOCYTES 9.1 % (2-11); NEUTROPHILS 60.9 % (40-80); PLATELET COUNT 184 10x3/uL (130-400); RBC 5.25 10x6/uL (4.20-6.10); RDW 14.1 % (11.5-14.5); WBC 6.7 10x3/uL (4.8-10.8)
[2018-05-07 12:21] LABS: APTT 28.3 SECONDS (22.8-39.4); INR 1.04 (0.85-1.17); PROTIME 13.2 SECONDS (11.6-15.0)
[2018-05-07 12:29] LABS: ALBUMIN 3.6 g/dL (3.4-5.0); ALKALINE PHOSPHATASE 69 U/L (46-116); ALT (SGPT) 19 U/L (10-68); BILIRUBIN - TOTAL 0.76 mg/dL (0.2-1.3); CALC OSMOLALITY 278 mosm/kg (275-300); CALCIUM 9.4 mg/dL (8.5-10.1); CARBON DIOXIDE 27.5 mmol/L (21.0-32.0); CHLORIDE - SERUM 107 mmol/L (98-107); CREATININE - SERUM 1.3 mg/dL (0.6-1.3); GLUCOSE 85 mg/dL (74-106); POTASSIUM - SERUM 5.2 mmol/L (3.5-5.1); PROTEIN - SERUM 7.4 g/dL (6.4-8.2); SODIUM 140 mmol/L (136-145); UREA NITROGEN 16 mg/dL (7-18); eGFR NON AFRICAN AMERICAN 58 mL/min (90-120)
[2018-05-07 12:44] LABS: CKMB 0.5 U/L (0.0-3.6); CREATINE KINASE 108 UL (21-232); PRO BNP 209 pg/mL (0-125)
== END 2018-05-07 19:09 | disposition left against medical advice (07) ==
LOC: D.ER 11:07
PROVIDERS: Family Medicine
DX: R07.9 Chest pain, unspecified (principal); R68.84 Jaw pain

== ENCOUNTER 2018-05-11 23:05 | Emergency (ER) | payer MEDICARE, OTHER ==
[~2018-05-11] VITALS: Ht 177.8 cm; Wt 86.4 kg
[2018-05-11 23:09] VITALS: Ht 177.8 cm; Wt 86.4 kg
[2018-05-12 00:30] LABS: HEMATOCRIT 40.6 % (42.0-54.0); HEMOGLOBIN 13.3 g/dL (13.5-17.5); LYMPHOCYTES 28.5 % (15-50); MCH 28.2 pg (26.0-34.0); MCHC 32.8 g/dL (31.0-37.0); MEAN PLATELET VOLUME 9.7 fL (7.4-10.4); NEUTROPHILS 55.4 % (40-80); PLATELET COUNT 153 10x3/uL (130-400); RBC 4.72 10x6/uL (4.20-6.10); RDW 13.7 % (11.5-14.5); WBC 6.2 10x3/uL (4.8-10.8)
[2018-05-12 00:36] LABS: APTT 29.7 SECONDS (22.8-39.4); INR 1.07 (0.85-1.17); PROTIME 13.5 SECONDS (11.6-15.0)
[2018-05-12 00:37] LABS: ALBUMIN 3.3 g/dL (3.4-5.0); ALKALINE PHOSPHATASE 72 U/L (46-116); ALT (SGPT) 21 U/L (10-68); BILIRUBIN - TOTAL 0.32 mg/dL (0.2-1.3); CALC OSMOLALITY 284 mosm/kg (275-300); CALCIUM 8.9 mg/dL (8.5-10.1); CHLORIDE - SERUM 108 mmol/L (98-107); CREATININE - SERUM 1.5 mg/dL (0.6-1.3); GLUCOSE 95 mg/dL (74-106); POTASSIUM - SERUM 4.2 mmol/L (3.5-5.1); PROTEIN - SERUM 6.4 g/dL (6.4-8.2); SODIUM 142 mmol/L (136-145); UREA NITROGEN 18 mg/dL (7-18); eGFR NON AFRICAN AMERICAN 49 mL/min (90-120)
[2018-05-12 00:49] LABS: CKMB 0.8 U/L (0.0-3.6); CREATINE KINASE 64 UL (21-232); PRO BNP 181 pg/mL (0-125); TROPONIN-I < 0.017 ng/mL (0.000-0.060)
[2018-05-12] MEDS ORDERED: NORCO 7.5/325 T1 TA1 PO (01:22)
[2018-05-12] MEDS ORDERED: NITROSTAT0.4 MG SL (01:22)
[2018-05-12 02:11] VITALS: BP 132/78
== END 2018-05-12 02:12 | disposition home or self-care (01) ==
LOC: D.ER 23:05
PROVIDERS: Family Medicine
DX: R07.9 Chest pain, unspecified (principal); I25.10 Atherosclerotic heart disease of native coronary artery without angina pectoris; R06.09 Other forms of dyspnea; I10 Essential (primary) hypertension; Z95.0 Presence of cardiac pacemaker

== ENCOUNTER 2018-05-20 15:27 | Outpatient (CLI) | payer MEDICARE, OTHER ==
[~2018-05-20] VITALS: Ht 177.8 cm; Wt 86.2 kg
--- NOTE | ~2018-05-20 | HP ---
PATIENT: PAT PEREIRA MEDICAL RECORD: [id number] ACCOUNT: [id number] LOCATION:[address] : [birth year] ADMISSION DATE: 05/20/18 HISTORY AND PHYSICAL EXAMINATION ADMITTING DIAGNOSES: 1. Unstable angina. 2. Coronary artery disease. 3. Hypertension. 4. Hyperlipidemia. 5. Past smoking history. 6. Chronic obstructive pulmonary disease. HISTORY OF PRESENT ILLNESS: Mr. Pereira presents with increasing anginal symptomatology. Last cardiac intervention was approximately a month ago. His angina has dramatically increased. A month ago, he had laser atherectomy and PTCA of the LAD for in-stent restenosis. PHYSICAL EXAMINATION: GENERAL APPEARANCE: Well-nourished, well-developed, appears stated age. Level of distress, comfortable. PSYCHIATRIC: Mental status, alert, normal affect. Orientation, oriented to time, place and person. EYES: Lids and conjunctiva, noninjected. No discharge, no pallor. ENT: Lips, teeth, gums, normal dentition. Oropharynx, no cyanosis, no pallor. NECK: Carotid arteries, bilateral normal upstroke, no bruits, no thrills. JUGULAR VEINS: No jugular venous pressure or distention. CERVICAL LYMPH NODES: Nontender, nonenlarged. THYROID: Not enlarged. Nontender. No nodules. LUNGS: Respiratory effort, unlabored. CHEST: Normal curvature. No thoracic deformity. No chest wall tenderness. Percussion, resonant. Auscultation, clear. No wheezes, no rales, no rhonchi. CARDIOVASCULAR: Precordial exam, nondisplaced. No heaves or pericardial thrills. Rate and rhythm, regular. Heart sounds, normal S1, normal S2. No S3, no gallop, no rub. Systolic murmur, not heard. Diastolic murmur, not heard. EXTREMITIES: No cyanosis, no edema. Peripheral pulses, full and equal in all extremities, except as noted. No bruits appreciated. ABDOMEN: Soft, nondistended. Normal aorta. No bruit. Nontender. No masses. Liver, nontender, no hepatomegaly. Spleen, nontender, no splenomegaly. MUSCULOSKELETAL: No joint tenderness. No joint swelling. No erythema. NEUROLOGICAL: Normal gait, normal strength, normal tone. SKIN: Warm and dry. OVERALL IMPRESSION: Unstable angina. We will relook angiography in the a.m. Further care depends upon findings of the angiography. TRANSINT:[id number] Voice Confirmation ID: [id number] DOCUMENT ID: [id number] HISTORY AND PHYSICAL [id number] PAT PEREIRA JEFFREY MD at 1230 CC: [id number] DICTATION DATE: 05/21/18 1014 TOOLROOM HELPER: 05/21/18 1030 DIS IN 05/21/18 [facility] [address] [place] [address]
--- NOTE | ~2018-05-20 | HEMODYNAMI ---
PATIENT:PAT MEJÍA MEDICAL RECORD: [id number] : 47 [facility] [address] [id number] ADMISSION DATE: 05/20/18 Generatedon:05/21/201810:24 Patient name: PAT MEJÍA Patient #: [id number] : 1945 Date of study: 05/21/2018 Page: Of Hemodynamic Procedure Report Patient Data Patient Demographics Procedure consent was obtained First Name: PAT Gender: Male Last Name: ALFONZO : 1945 Middle Initial: MARLENA Age: 72 year(s) Patient #: [id number] Race: SSN: [id number] Additional ID: [id number] Contact details Address: [place] [address] State: [place] City: [place] Zip code: [address] Past Medical History History of disease Date Diagnosis Comments CAD Allergies Allergen Reaction Date Comments Reported Sulfa drugs 02/19/2015 Other allergy 11/15/2016 sulfa Other allergy 05/21/2018 sulfa Admission Admission Data Admission Date: 05/20/2018 Admission Time: 15:27 Admit Source: Other Room #: D.2131 Lab Results Lab Result Date: 05/21/2018 Lab Result Time: 7:55 Biochemistry Name Units Result Min Max BUN mg/dl 17 --(---*)-- 7 18 Creatinine mg/dl 1.2 --(---*)-- 0.6 1.3 CBC Name Units Result Min Max Hematocrit % 43.4 --(*---)-- 42 54 Hemoglobin g/dl 14.1 --(*---)-- 13.5 17.5 Procedure Procedure Types Cath Procedure Diagnostic Procedure [facility] w/Coronaries FFR/IVUS Intra-Coronary IVUS Initial PCI Procedure Coronary Stent Coronary Stent Initial PTCA PTCA Initial Procedure Description Procedure Date Procedure Date: 05/21/2018 Procedure Start Time: 9:44 Procedure End Time: 10:13 Procedure Staff Name Function Buffie Campo RN Nurse Jayme Swan MD Performing Physician Tres Ware RT Monitor Suraj Parson RT Scrub Procedure Data Cath Procedure Fluoroscopy Diagnostic fluoroscopy Total fluoroscopy Time: 7.5 time: 7.5 min min Diagnostic fluoroscopy Total fluoroscopy dose: dose: 2464 mGy 2464 mGy Contrast Material Contrast Material Type Amount (ml) Isovue 300 142 Entry Location Entry Primary Successful Side Size Upsize Upsize Entry Closure Succes sful Closure Location (Fr) 1 (Fr) 2 (Fr) Remarks Device Remarks Femoral Right 6 Fr Exoseal artery Short Estimated blood loss: 10 ml Diagnostic catheters Device Type Used For End Catheter Placement MULTIPACK Pigtail 5 Fr Procedure catheter MULTIPACK JL 4.0 5Fr Procedure catheter MULTIPACK 3DRC 5Fr Procedure catheter Procedure Complications No complications Procedure Medications Medication Administration Route Dosage Oxygen NC 2 l/min Plavix P.O. 75 mg Lidocaine 2% added to field 20 Heparin Flush Bag added to field 2 bags (1000units/500ml NS) 0.9% NaCl I.V. 100 ml/hr Versed I.V. 1 mg Fentanyl I.V. 50 mcg Versed I.V. 1 mg Fentanyl I.V. 50 mcg Heparin Bolus I.V. 4000 units Versed I.V. 1 mg Fentanyl I.V. 50 mcg Versed I.V. 1 mg Fentanyl I.V. 50 mcg Fentanyl I.V. 50 mcg Hemodynamics Rest HGB: 14.1 (g/dl) Heart Rate: 60 (bpm) Pressure Samples Time Site Value (mmHg) Purpose Heart Use Rate(bpm) 9:48 AO 136/68(96) Snapshot 60 Snapshots Pre Cath Intra NCS Post Cath Vital Signs Time Heart Resp SPO2 etCO2 NIBP (mmHg) Rhythm Pain Sedation Rate (ipm) (%) (mmHg) Status Level (bpm) 9:25:26 60 19 99 31.4 187/101(154) Paced 0 (11) 10(A) , No pain 9:29:21 60 16 100 40.5 171/84(93) Paced 0 (11) 10(A) , No pain 9:33:15 60 18 98 41.2 159/89(112) Paced 0 (11) 10(A) , No pain 9:37:04 60 16 99 44.2 163/92(126) Paced 0 (11) 10(A) , No pain 9:40:54 60 16 99 51.7 138/87(113) Paced 0 (11) 10(A) , No pain 9:44:41 60 15 98 11.2 142/86(109) Paced 0 (11) 9(A) , No pain 9:48:33 60 15 98 26.9 138/74(98) Paced 0 (11) 9(A) , No pain 9:52:20 60 15 98 53.2 138/79(98) Paced 0 (11) 9(A) , No pain 9:56:09 60 15 99 0 135/79(105) Paced 0 (11) 9(A) , No pain 9:59:59 60 15 100 13.5 125/77(99) Paced 0 (11) 9(A) , No pain 10:03:44 60 17 98 11.2 126/79(99) Paced 0 (11) 9(A) , No pain 10:07:33 60 17 97 0 124/70(92) Paced 0 (11) 9(A) , No pain 10:11:45 60 18 99 51.7 151/88(118) Paced 0 (11) 10(A) , No pain Medications Time Medication Route Dose Verified Delivered Reason Notes Effectiveness by by 9:26:01 Oxygen NC 2 Jayme Buffie used for l/min Sosa Campo RN procedure 9:26:08 Plavix P.O. 75 mg Jayme Buffie for Sosa Campo RN antiplatelet therapy 9:26:17 Lidocaine 2% added 20ml Jayme Delacruz for local to vial Sosa Swan MD anesthetic field 9:26:22 Heparin Flush added 2 Jayme Jayme used for Bag to bags Sosa Swan MD procedure (1000units/500ml field NS) 9:26:30 0.9% NaCl I.V. 100 Jayme Buffie Per physician ml/hr Sosa Campo RN 9:38:11 Versed I.V. 1 mg Jayme Bernalie for sedation Sosa Campo RN 9:38:16 Fentanyl I.V. 50 Jayme Buffie for sedation mcg Sosa Campo RN 9:42:42 Versed I.V. 1 mg Jayme Buffie for sedation Sosa Campo RN 9:42:46 Fentanyl I.V. 50 Jayme Buffie for sedation mcg Sosa Campo RN 9:52:59 Heparin Bolus I.V. 4000 Jayme Devi for verifi ed units Sosa Campo RN anticoagulation with dr swan 9:54:56 Versed I.V. 1 mg Jayme Devi for sedation Sosa Campo RN 9:55:00 Fentanyl I.V. 50 Jayme Devi for sedation mcg Sosa Campo RN 10:00:19 Versed I.V. 1 mg Jayme Devi for sedation Sosa Campo RN 10:00:22 Fentanyl I.V. 50 Jayme Devi for sedation mcg Sosa Campo RN 10:04:27 Fentanyl I.V. 50 Jayme Devi for sedation mcg Sosa Campo RN Procedure Log Time Note 9:01:58 Informed consent obtained and on chart 9:02:03 Admit Source: Other 9:02:43 Diagnostic Cath status Elective 9:02:44 Shandra Campo RN sent for patient. Start room use. 9:02:45 Time tracking: Regular hours (M-F 7:00 - 5:00) 9:02:49 Plan of Care:Hemodynamics will remain stable., Cardiac rhythm will remain stable., Comfort level will be maintained., Respiratory function will remain adequate., Patient/ family verbilizes understanding of procedure., Procedure tolerated without complication., Recovers from procedure without complications.. 9:05:05 H&P Date Dictated: 05/20/2018 Within 30 days and on chart., H&P Addendum completed by physician on day of procedure. (MUST COMPLETE FOR ALL OUTPATIENTS). 9:06:06 Lab Result : Hemoglobin 14.1 g/dl 9:06:06 Lab Result : Hematocrit 43.4 % 9:06:06 Lab Result : BUN 17 mg/dl 9:06:06 Lab Result : Creatinine 1.2 mg/dl 9:12:52 Lab results completed and on chart. 9:13:01 Patient received from PCU to CCL 2 Alert and oriented. Tansferred to table in Supine position. 9:13:02 Warm blankets applied, and leola hugger turned on for patient comfort. 9:13:03 ECG and BP/O2 sat monitors applied to patient. 9:13:03 Correct patient and procedure confirmed by team. 9:13:05 Pre-op teaching completed and patient verbalized understanding. 9:13:05 Pre-procedure instructions explained to patient. 9:13:06 Family in waiting room. 9:13:07 Patient NPO since Midnight. 9:24:12 Vital chart was started 9:24:13 Baseline sample Acquired. 9:24:18 Rhythm: sinus rhythm 9:24:32 Full Disclosure recording started 9:24:41 Patient allergic to Other allergysulfa 9:24:43 Is the patient allergic to Iodine/contrast media? No. 9:24:44 Is patient on blood thinner?Yes 9:24:45 ACC The patient was administered the following blood thiners within the last 24 hours: ACCPlavix 9:24:47 Patient diabetic? Yes. 9:24:50 If diabetic: On Metformin? Yes 9:24:52 If on Metformin: Last Dose? 04/21/2018 9:24:56 Previous problem with sedation/anesthesia? No ? 9:25:01 Snore? No 9:25:02 Sleep apnea? No 9:25:07 Deviated septum? No 9:25:08 Opens mouth fully? Yes 9:25:09 Sticks out tongue? Yes 9:25:11 Airway obstruction? No ? 9:25:13 Dentures? No ? 9:25:17 Pre procedure: right dorsailis pedis pulse 2+ Normal; easily identifiable; not easily obliterated 9:25:22 Patient pain scale 5/10 hand pain. 9:25:28 IV patent on arrival in right hand with 0.9% NaCl at KVO. 9:25:32 Alarms reviewed by R. N. 9:25:32 Right groin area was prepped with chlora-prep and draped in sterile fashion 9:25:33 Sharps counted by scrub and verified by R.N. 9:25:40 Use device set Femoral Dx 9:25:41 ACIST Syringe (48232) opened to sterile field. 9:25:45 Bag Decanter () opened to sterile field. 9:25:48 ACIST Manifold (31311) opened to sterile field. 9:25:48 ACIST Hand Control (37197) opened to sterile field. 9:25:49 Tegaderm 4 x 4 (1626W) opened to sterile field. 9:25:55 DIAGNOSTIC Multipack 5Fr catheter set ([id number]) opened to sterile field. 9:25:56 DIAGNOSTIC WIRE .035 260cm J wire (603681) opened to sterile field. 9:25:56 Medline Cath Pack ([id number]) opened to sterile field. 9:26:01 Oxygen 2 l/min NC was administered by Shandra Campo RN; used for procedure; 9:26:08 Plavix 75 mg P.O. was administered by Shandra Campo RN; for antiplatelet therapy; 9:26:17 Lidocaine 2% 20ml vial added to field was administered by Jayme Swan MD; for local anesthetic; 9:26:22 Heparin Flush Bag (1000units/500ml NS) 2 bags added to field was administered by Jayme Swan MD; used for procedure; 9:26:30 0.9% NaCl 100 ml/hr I.V. was administered by Shandra Campo RN; Per physician; 9:37:36 Final Timeout: patient, procedure, and site verified with staff and physician. All members of the team are in agreement. 9:37:36 --------ALL STOP TIME OUT------ 9:37:44 Right groin site verified by team. 9:37:46 Physical assessment completed. ASA score P 2 - A patient with mild systemic disease as per Jayme Swan MD. 9:37:50 Sedation plan: IV Moderate Sedation Medication:Versed, Fentanyl 9:38:11 Versed 1 mg I.V. was administered by Shandra Campo RN; for sedation; 9:38:16 Fentanyl 50 mcg I.V. was administered by Shandra Campo RN; for sedation; 9:42:11 Use device set [facility] PCI 9:42:22 SHEATH Prelude 6Fr 0.035 (DWP-5X-58-035) opened to sterile field. 9:42:42 Versed 1 mg I.V. was administered by Shandra Campo RN; for sedation; 9:42:46 Fentanyl 50 mcg I.V. was administered by Shandra Campo RN; for sedation; 9:44:02 Procedure started. 9:44:11 Local anesthetic to right femoral artery with Lidocaine 2% by Jayme Swan MD.INITIAL ACCESS ONLY 9:45:26 A 6 Fr Short sheath was inserted into the Right Femoral artery 9:45:48 A MULTIPACK Pigtail 5 Fr catheter was advanced over the wire and used for Procedure. 9:46:53 Sheath was damaged upon insertion. J wire advanced. Exchange for new sheath. 9:47:05 SHEATH Prelude 6Fr 0.035 (QFL-5X-09-035) opened to sterile field. 9:48:03 LV angiography performed. 9:48:04 LV gram done using DURAND 9:48:09 EF : 60 % 9:48:10 LV hemodynamics recorded. 9:48:13 Injector settings: Ml/sec: 7, Volume: 15, 9:48:15 Catheter removed. 9:48:24 A MULTIPACK JL 4.0 5Fr catheter was advanced over the wire and used for Procedure. 9:49:31 LCA angiography performed. 9:50:30 Catheter removed. 9:50:35 A MULTIPACK 3DRC 5Fr catheter was advanced over the wire and used for Procedure. 9:50:37 GUIDE 6FR XBLAD 3.5 catheter ([id number]) opened to sterile field. 9:50:40 INFLATOR Merit BasixCompak (LY0816) opened to sterile field. 9:50:45 CHOICE PT Extra Support 182cm wire ([id number]) opened to sterile field. 9:50:52 [place] E[place] IVUS Catheter (52839B) opened to sterile field. 9:51:25 RCA angiography performed. 9:51:27 Catheter removed. 9:52:57 GUIDE 6FR AR 2.0 SH catheter (RH1UP3OQ) opened to sterile field. 9:52:59 Heparin Bolus 4000 units I.V. was administered by Shandra Campo RN; for anticoagulation; verified with dr swan 9:54:23 6 Fr AR 2 SH guide catheter was inserted over the wire 9:54:30 Choice PT XS wire advanced. 9:54:56 Versed 1 mg I.V. was administered by Shandra Campo RN; for sedation; 9:55:00 Fentanyl 50 mcg I.V. was administered by Shandra Campo RN; for sedation; 9:55:06 Wire advanced across lesion. 9:56:25 Place stent Inflation Number: 1 A ALICIA RX 2.5 x 12 stent ([id number]) was prepped and advanced across the Dist RCA. The stent was deployed at 17 BERNICE for 0:10 (min:sec). 9:57:00 Inflation number: 2 The stent balloon was then re-inflated across the Dist RCA to 5 BERNICE for 0:15 (min:sec). 9:57:47 Stent catheter was removed intact over wire. 9:57:48 Wire removed. 9:57:49 Guide catheter removed. 9:59:48 6 Fr XBLAD 3.5 guide catheter was inserted over the wire 10:00:10 Choice PT XS wire advanced. 10:00:19 Versed 1 mg I.V. was administered by Shandra Campo RN; for sedation; 10:00:22 Fentanyl 50 mcg I.V. was administered by Shandra Campo RN; for sedation; 10:00:57 Wire advanced across lesion. 10:01:29 IVUS catheter advanced over wire. 10:02:35 IVUS pass to LAD lesion performed. 10:02:43 IVUS catheter removed over wire. 10:04:27 Fentanyl 50 mcg I.V. was administered by Shandra Campo RN; for sedation; 10:04:51 Inflate balloon Inflation number: 1 A NC EUPHORA 3.5 x 8 balloon ([id number]) was prepped and advanced across the Mid LAD, then inflated to 25 BERNICE for 0:10 (min:sec). 10:05:37 Balloon removed over the wire. 10:06:54 Inflate balloon Inflation number: 2 A NC EUPHORA 4.0 x 12 balloon ([id number]) was prepped and advanced across the Mid LAD, then inflated to 25 BERNICE for 0:10 (min:sec). 10:08:27 Multiple inflations made at 25 Atms. 10:09:07 Balloon removed over the wire. 10:09:08 Wire removed. 10:09:09 Guide catheter removed. 10:09:13 EXOSEAL 6Fr (EX600) opened to sterile field. 10:09:32 Sheath removed intact; hemostasis achieved with Exoseal to the Right Femoral artery. 10:09:34 Procedure ended.(Physican Out) 10:11:42 Fluoroscopy time 07.50 minutes. 10:11:46 Fluoroscopy dose: 2464 mGy 10:11:46 Flurop Dose total: 2464 10:11:55 Contrast amount:Isovue 300 142ml. 10:11:56 Sharps counted by scrub and verified by R.N. 10:11:57 Insertion/operative site no bleeding no hematoma. 10:12:00 Post Procedure Pulses reassessed and unchanged 10:12:00 Post-op/insertion site Right Femoral artery dressed using a 4 x 4 and Tegaderm. 10:12:03 Post-procedure physical assessment completed. ASA score P 2 - A patient with mild systemic disease as per Jayme Swan MD. 10:12:05 Post procedure rhythm: unchanged. 10:12:07 Estimated blood loss: 10 ml 10:12:09 Post procedure instruction explained to patient.Patient verbalizes understanding. 10:12:10 Patient needs reinforcement of post procedure teaching. 10:12:22 Procedure type changed to Cath procedure, Diagnostic procedure, LHC, LHC w/Coronaries, FFR/IVUS, Intra-Coronary IVUS Initial, PCI procedure, Coronary Stent, Coronary Stent Initial, PTCA, PTCA Initial 10:13:18 Procedure and supply charges have been captured, reviewed, submitted and are correct. 10:13:21 Procedure Complication : No complications 10:13:25 See physician's report for complete and final results. 10:13:25 Vital chart was stopped 10:13:27 Report given to PCU. 10:13:34 Patient transfered to PCU with Bed. 10:13:36 Full Disclosure recording stopped 10:13:36 Procedure ended. 10:21:45 End room use (Document Last) Intervention Summary Intervention Notes Time ActionType Lesion and Equipment Used Action# Pressure Duration Attributes 9:56:25 Place stent Dist RCA ALICIA RX 2.5 x 1 17 00:10 12 stent ([id number]) 9:57:00 Reinflate Dist RCA ALICIA RX 2.5 x 2 5 00:15 stent 12 stent balloon ([id number]) 10:04:51 Inflate Mid LAD NC EUPHORA 3.5 1 25 00:10 balloon x 8 balloon ([id number]) 10:06:54 Inflate Mid LAD NC EUPHORA 4.0 2 25 00:10 balloon x 12 balloon ([id number]) Device Usage Item Name Manufacture Quantity Catalog Number Hospital Part Current Minimal Lot# / Charge Number Stock Stock Serial# Code ACIST Syringe Acist 1 48407 154975 741822 123583 20 () Conformity Inc Bag Decanter Microtek 1 422796 21024 409877 5 () Medical Inc. ACIST Hand Acist 1 74501 120857 804609 323387 5 Control (04745) Medical Systems Inc ACIST Manifold Acist 1 71501 640038 771153 585957 5 (99422) Medical Systems Inc Tegaderm 4 x 4 3M 1 1626W 269458 489806 348357 5 (1626W) DIAGNOSTIC Cardinal 1 QH9813 653323 73148 234491 30 Multipack 5Fr Health catheter set (YB9268) Medline Cath Cardinal 1 [id number] 085945 35557 583684 5 Pack Health ([id number]) DIAGNOSTIC WIRE St [place] 1 071230 177414 324618 651381 30 .035 260cm J wire (906932) SHEATH Prelude Merit 2 HXQ-6I-61-35 954112 9510706 610736 5 6Fr 0.035 Medical (BEF-6R-56-035) MULTIPACK Cardinal 1 334984 5 Pigtail 5 Fr Health catheter MULTIPACK JL Cardinal 1 516610 5 4.0 5Fr Health catheter MULTIPACK 3DRC Cardinal 1 740048 5 5Fr catheter Health GUIDE 6FR XBLAD Cardinal 1 [id number] 656469 832505 208494 10 3.5 catheter Health (70119794) INFLATOR Merit Merit 1 HY1493 744989 921888 690673 15 Expanite (GZ3907) CHOICE PT Extra [place] 1 [id number] 935200 340267 911428 5 Support 182cm Scientific wire (3907806V9) [place] 1 62928O 788508 609121 969130 8 [place] Eagleye IVUS Catheter (11680V) GUIDE 6FR AR Medtronic 1 [id number] 422212 37247 502822 1 2.0 SH catheter (CV9GR0IJ) ALICIA RX 2.5 x Medtronic 1 [id number] 959248 1932681 083315 5 [id number] 12 stent ([id number]) NC EUPHORA 3.5 Medtronic 1 [id number] 011324 754689 649890 1 [id number] x 8 balloon ([id number]) NC EUPHORA 4.0 Medtronic 1 [id number] 089493 199784 532984 1 [id number] x 12 balloon ([id number]) EXOSEAL 6Fr Cardinal 1 EX600 161492 895513 472196 10 (EX600) Health Signature Audit [place] Stage Time Signature Unsigned Intra-Procedure 05/21/2018 Tres Ware 10:24:43 AM RT(R) Signatures Monitor : Tres Ware RT Signature : Date : Time : [address] [address]
--- NOTE | ~2018-05-20 | DS ---
PATIENT:PAT PEREIRA :47 MEDICAL RECORD: [id number] DISCHARGE SUMMARY ADMISSION DATE: 05/20/18 DISCHARGE DATE: 05/21/18 DISCHARGE DIAGNOSES: 1. Unstable angina. 2. Coronary artery disease. 3. PTCA stent RCA and PTCA LAD this admission. HISTORY: Mr. Pereira presents with unstable anginal symptomatology, had significant disease of the RCA and LAD, underwent successful transcatheter revascularization of both territories, was discharged home with no change in his medication. Will follow up with [facility] in 1 month. TRANSINT:[id number] Voice Confirmation ID: [id number] DOCUMENT ID: [id number] BEBETO AVENDANO MD at 1230 CC: [id number] DICTATION DATE: 05/21/18 1015 PUBLIC SAFETY POLICE: 05/21/18 1058 DIS IN 05/21/18 [id number] [place] [address]
--- NOTE | ~2018-05-20 | OP ---
PATIENT NAME: PAT MEJÍA MEDICAL RECORD: [id number] :47 LOCATION:D.M2 D.2131 ADMISSION DATE:05/20/18 SURGEON: BEBETO AVENDANO MD DATE OF OPERATION: 05/21/2018 PROCEDURES: 1. PTCA stent RCA. 2. PTCA, LAD. 3. Intravascular ultrasound. 4. Left heart catheterization. 5. Selective coronary angiography. 6. Left ventriculogram. INDICATION: Angina and coronary artery disease. PROCEDURE IN DETAIL: After informed consent was obtained and after a detailed description of the risks, benefits as well as alternative therapies, the patient elected to proceed with angiogram and angioplasty. The right femoral area was prepped and draped in normal sterile fashion. Right femoral artery was cannulated via modified Seldinger technique with placement of a 6-Khmer sheath. All catheters exchanged through this sheath. FINDINGS: The left ventriculogram was performed in standard 30-degree DURAND view, reveals good cardiac wall motion throughout all segments. Overall ejection fraction estimated 60%. SELECTIVE CORONARY ANGIOGRAPHY: 1. Left main is with no significant angiographic disease. 2. Left anterior descending has previously placed stents. Intravascular ultrasound reveals that there is poor stent apposition and stenosis of greater than 70% mid vessel. 3. Left circumflex has previously placed stents, these are widely patent with no significant restenosis. No disease elsewise. 4. The right coronary artery has previously placed stents in the RCA and distal PLV. There is 70% in-stent restenosis in the distal PLV. PTCA STENT OF THE RCA: The stent used was a 2.5 x 12 mm Isaías. The Result was 0% residual stenosis. PTCA OF THE LAD: We did high pressure PTCA with a 3.5 and 4.0 balloon. Both balloons were taken to 25 atmospheres. OVERALL IMPRESSION: Successful PTCA stent of the RCA and successful high pressure PTCA of the LAD going from 70% initial stenosis on both to 0% residual. 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
[~2018-05-20 15:27] MED LIST changes: +NITROSTAT0.4 MG SL; +NORCO 7.5/325 T1 TA1 PO
[2018-05-20 16:24] VITALS: BP 171/69; BMI 27.3
[2018-05-20 17:26] VITALS: BP 171/69
[2018-05-20 20:00] VITALS: BP 181/84
[2018-05-21] VITALS: BP 99/59
[2018-05-21 08:00] LABS: BASOPHILS 0.1 % (0-2); EOSINOPHILS 4.5 % (0-7); HEMATOCRIT 43.4 % (42.0-54.0); HEMOGLOBIN 14.1 g/dL (13.5-17.5); IMMATURE GRANULOCYTES 0.7 % (0-5); LYMPHOCYTES 21.7 % (15-50); MCH 28.5 pg (26.0-34.0); MCHC 32.5 g/dL (31.0-37.0); MCV 87.7 fL (80.0-100.0); MEAN PLATELET VOLUME 9.6 fL (7.4-10.4); MONOCYTES 12.3 % (2-11); NEUTROPHILS 60.7 % (40-80); PLATELET COUNT 155 10x3/uL (130-400); RBC 4.95 10x6/uL (4.20-6.10); RDW 13.8 % (11.5-14.5); WBC 6.7 10x3/uL (4.8-10.8)
[2018-05-21 08:30] LABS: ANION GAP 9.5 mmol/L (8-16); CALCIUM 8.7 mg/dL (8.5-10.1); CARBON DIOXIDE 27.8 mmol/L (21.0-32.0); CREATININE - SERUM 1.2 mg/dL (0.6-1.3); POTASSIUM - SERUM 4.3 mmol/L (3.5-5.1)
[2018-05-21 08:33] VITALS: BP 132/76
[2018-05-21 12:47] VITALS: Ht 177.8 cm; Wt 86.2 kg
== END 2018-05-21 16:22 | disposition home or self-care (01) ==
LOC: OBSVTIME → D.M2 15:27 → OBSVTIME 15:27 → D.M2 15:27 → UNDOADMOB 15:27 → D.CATH 15:27 → EDSTATUS 05-21 07:30 → D.M2 05-21 16:22 → D.CATH 05-21 16:22 → D.M2 05-21 16:22
PROVIDERS: Internal Medicine Interventional Cardiology
DX: I25.110 Atherosclerotic heart disease of native coronary artery with unstable angina pectoris (principal); T82.855A Stenosis of coronary artery stent, initial encounter; I10 Essential (primary) hypertension; E78.5 Hyperlipidemia, unspecified; J44.9 Chronic obstructive pulmonary disease, unspecified; Z87.891 Personal history of nicotine dependence; Z01.812 Encounter for preprocedural laboratory examination
CPT/HCPCS: 92920; 92978; 93458; C9600